=== PATIENT | female | born 1960 | race Caucasian/White ===

== ENCOUNTER 2020-01-29 16:04 | Emergency (ER) | payer MEDICARE ==
[~2020-01-29] VITALS: Ht 147.3 cm; Wt 72.6 kg
--- NOTE | 2020-01-29 16:51 | Emergency Department Note ---
History of Present Illnes History of Present Illness Chief Complaint: Abdominal Complaints History of Present Illness This is a 59 year old female Chief Complaint Comment PATIENT IN FROM HOME WITH COMPLAINTS OF ABDOMINAL PAIN X 3 DAYS; STATES THAT SHE "FEELS GASSY". PATIENT DENIES NAUSEA, VOMITING, DIARRHEA. PATIENT DENIES URINARY SYMPTOMS OR VAGINAL DISCHARGE. Historian: Patient Arrival Mode: Car Dry Cleaning Checker Required: No Onset (how long ago): day(s) (3) Location: umbillical Quality: discomfort, gassy Radiation: Reports non-radiation Severity: mild Onset quality: gradual Duration (how long): day(s) (3) Timing of current episode: sporadic Progression: waxing and waning Chronicity: new Context: Denies recent illness, Denies recent surgery Relieving factors: none Associated symptoms: Reports denies other symptoms Treatments prior to arrival: none Past Medical/Family History Physician Review I have reviewed the patient's past medical and family history. Any updates have been documented here. Past Medical History Recent Fever: No Clinical Suspicion of Infectio: No New/Unexplained Change in Ment: No Past Medical History: Hypertension Other Medical History: RHEUMATOID ARTHRITIS Past Surgical History: Social History Smoking Cessation: Never Smoker Counseling Performed: No Alcohol Use: None Any Illegal Drug Use: No Physically hurt or threatened: No Other Any Pre-Existing Lines (PICC,: No Review of Systems Review of Systems Constitutional: Reports no symptoms EENTM: Reports no symptoms Cardiovascular: Reports no symptoms Respiratory: Reports no symptoms Gastrointestinal: Reports as per HPI Genitourinary: Reports no symptoms Musculoskeletal: Reports no symptoms Integumentary: Reports no symptoms Neurological: Reports no symptoms Psychological: Reports no symptoms Endocrine: Reports no symptoms Hematological/Lymphatic: Reports no symptoms Physical Exam Related Data Allergies: Coded Allergies: hydrocodone (Verified Allergy, Mild, RASH, 01/29/20) Triage Vital Signs Vital Signs Date Time Temp Pulse Resp B/P (MAP) Pulse Ox O2 Delivery O2 Flow Rate FiO2 01/29/20 16:40 99.1 104 18 151/94 100 Room Air Vital signs reviewed: Yes Physical Exam CONSTITUTIONAL Constitutional: Present well-developed, Present well-nourished HENT HENT: Present normocephalic, Present atraumatic, Present oropharynx clear/moist, Present nose normal HENT L/R: Present left ext ear normal, Present right ext ear normal EYES Eyes: Reports PERRL, Reports conjunctivae normal NECK Neck: Present ROM normal PULMONARY Pulmonary: Present effort normal, Present breath sounds normal CARDIOVASCULAR Cardiovascular: Present regular rhythm, Present heart sounds normal, Present capillary refill normal, Present normal rate GASTROINTESTINAL Abdominal: Present soft, Present nontender, Present bowel sounds normal GENITOURINARY Genitourinary: Present exam deferred SKIN Skin: Present warm, Present dry MUSCULOSKELETAL Musculoskeletal: Present ROM normal NEUROLOGICAL Neurological: Present alert, Present oriented x 3, Present no gross motor or sensory deficits PSYCHOLOGICAL Psychological: Present mood/affect normal, Present judgement normal Assessment & Plan Medical Decision Making MDM 59 y.o F w/ no reported PMH presents for lower abdomial pain. No pain currently. Non tender abdomen. Offered to work up with labs/UA but patient prefers to f/u w/ her PCP and defers work up at this tie. VSS, WNL. No emergent process apparent at this time. Patient is appropriate for discharge. Reassessment Reassessment time: 16:50 Reassessment Well appearing, NAD Assessment & Plan Final Impression: (1) Abdominal discomfort Depart Disposition: HOME, SELF-CARE Last Vital Signs Date Time Temp Pulse Resp B/P (MAP) Pulse Ox O2 Delivery O2 Flow Rate FiO2 01/29/20 16:40 99.1 104 18 151/94 100 Room Air TRI MIRANDA MD Jan 29, 2020 16:51
--- OUTSIDE RECORDS SUMMARY | 2020-01-29 16:56 | XMS REPORT | Clinical Summary ---
Author Author [facility] ict Organization 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 Active traZODone (DESYREL) 50 mg Take 1 tablet 30 tablet 1 tabletIndications: by mouth at 8 Insomnia, unspecified bedtime nightly. Active ergocalciferol (VITAMIN Take 1 12 capsule 0 D2) 50,000 unit capsule by 8 capsuleIndications: mouth weekly. Vitamin D deficiency Active folic acid (FOLVITE) 1 mg Take 2 120 tablet 2 tabletIndications: tablets by 9 Methotrexate, alf, mouth daily. current use Active Meloxicam 7.5 mg Take 1 tablet 90 tablet 1 01 tabletIndications: by mouth 9 Rheumatoid arthritis, daily. involving unspecified site, unspecified rheumatoid factor presence Active omeprazole (PRILOSEC) 20 Take 1 90 capsule 1 0 mg delayed release capsule by 9 capsuleIndications: Long mouth daily. term systemic steroid user Active promethazine (PHENERGAN) Take 1 tablet 30 tablet 0 12.5 mg by mouth 9 tabletIndications: every 8 hours Generalized abdominal as needed for pain Nausea or Vomiting. Active Meloxicam (MOBIC) 15 mg Take 1 tablet 90 tablet 1 tabletIndications: by mouth 0 Rheumatoid arthritis daily. involving multiple sites with positive rheumatoid factor 03/06/2020 Active predniSONE (DELTASONE) 5 Take 3 160 tablet 1 0 mg tabletIndications: tablets by 0 Rheumatoid arthritis mouth daily involving multiple sites for 14 days, with positive rheumatoid THEN 2 factor tablets daily for 14 days, THEN 1 tablet daily for 90 days. 02/11/2020 Active adalimumab (HUMIRA PEN) Inject 0.8 mL 2 Each 6 40 mg/0.8 mL pen kit under the 0 injectionIndications: skin every 14 Rheumatoid arthritis days involving multiple sites with positive rheumatoid factor Active hydroCHLOROthiazide 12.5 Take 1 90 capsule 0 0 mg capsuleIndications: capsule by 0 Uncontrolled hypertension mouth every morning. 04/26/2019 Discontinued (Therapy comple cristi) mometasone (NASONEX) 50 USE 1 SPRAY 17 g 1 mcg/actuation nasal IN EACH 8 sprayIndications: NOSTIL ONCE A Allergic rhinitis, DAY unspecified seasonality, THERAPEUTIC unspecified trigger SUBSTITUTION FOR FLONASE PER P&T 02/07/2019 Discontinued (Reorder) adalimumab (HUMIRA PEN) Inject 0.8 mL 2 Each 5 40 mg/0.8 mL pen kit under the 9 injectionIndications: skin every 14 Rheumatoid arthritis days for 30 involving multiple sites days. with positive rheumatoid factor 04/13/2019 Discontinued (Reorder) hydroCHLOROthiazide 12.5 Take 1 90 capsule 0 0 mg capsuleIndications: capsule by 9 Uncontrolled hypertension mouth every morning. 02/09/2019 methotrexate (RHEUMATREX) Take 4 12 tablet 3 2.5 mg tabletIndications: tablets by 9 Methotrexate, alf, mouth weekly current use for 7 days. 06/12/2019 Discontinued (Reorder) predniSONE (DELTASONE) 5 Take 4 388 tablet 0 0 mg tabletIndications: tablets by 9 Rheumatoid arthritis, mouth daily involving unspecified for 14 days, site, unspecified THEN 3 rheumatoid factor tablets 2 presence times daily for 14 days, THEN 2 tablets 2 times daily for 62 days. 10/30/2019 Discontinued (Reorder) adalimumab (HUMIRA PEN) Inject 0.8 mL 2 Each 5 40 mg/0.8 mL pen kit under the 9 injectionIndications: skin every 14 Rheumatoid arthritis days for 30 involving multiple sites days. with positive rheumatoid factor 07/18/2019 Discontinued (Reorder) hydroCHLOROthiazide 12.5 Take 1 90 capsule 0 1 mg capsuleIndications: capsule by 9 Uncontrolled hypertension mouth every morning. 06/26/2019 mometasone (NASONEX) 50 1 [place] by 17 g 1 mcg/actuation nasal each nostril 9 sprayIndications: Viral route daily URI with cough for 14 days. 04/27/2019 Discontinued promethazine (PHENERGAN) Take 1 tablet 30 tablet 0 12.5 mg by mouth 9 tabletIndications: every 8 hours Generalized abdominal as needed for pain Nausea or Vomiting. 05/01/2019 Discontinued (Alternate ther apy) promethazine (PHENERGAN) Take 1 tablet 30 tablet 0 12.5 mg by mouth 9 tabletIndications: every 8 hours Generalized abdominal as needed for pain Nausea or Vomiting. 05/08/2019 promethazine (PHENERGAN) Take 1 tablet 30 tablet 0 25 mg tabletIndications: by mouth 9 Nausea without vomiting every 6 hours as needed for up to 7 days for Nausea or Vomiting. 11/04/2019 predniSONE (DELTASONE) 5 Take 4 388 tablet 0 0 mg tabletIndications: tablets by 0 Rheumatoid arthritis, mouth daily involving unspecified for 14 days, site, unspecified THEN 3 rheumatoid factor tablets 2 presence times daily for 14 days, THEN 2 tablets 2 times daily for 62 days. 10/30/2019 Discontinued (Reorder) hydroCHLOROthiazide 12.5 Take 1 90 capsule 0 0 mg capsuleIndications: capsule by 0 Uncontrolled hypertension mouth every morning. 01/28/2020 Discontinued (Reorder) hydroCHLOROthiazide 12.5 Take 1 90 capsule 0 0 mg capsuleIndications: capsule by 0 Uncontrolled hypertension mouth every morning. 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 12/04/2013 factor Overview: Diagnosed 09/2013 Chronic arthralgias of knees and hips H/O rheumatoid arthritis Chronic pain of both knees Bilateral knee effusions Swelling of wrist Encounters Care Team Description Date Type Specialty Shantanu Valiente MD Medications 01/28/2020 Refill Family Practice Isaura Fabian RN 01/17/2020 Nurse Triage Shantanu Valiente MD Medications 12/03/2019 Refill Family Practice Damian Delgado Fellow() Eriberto Dick MD Rheumatoid arthritis involving multiple sites with positive rheumatoid factor (Primary Dx); Osteoarthritis of both knees, unspecified osteoarthritis type; Encounter for long-term (current) use of high-risk medication 11/08/2019 Telephonic Rheumatology Encounter Eriberto Dick MD Medications 11/04/2019 Refill Family Practice Eriberto Dick MD Medications 10/30/2019 Refill Family Practice Daisy Almaguer, Fellow() Medications 10/30/2019 Refill Rheumatology Shantanu Valiente MD Medications 10/30/2019 Refill Family Practice Shantanu Valiente MD Medications 07/18/2019 Refill Family Practice Eriberto Dick MD Medications 06/12/2019 Refill Family Practice Eriberto Dick MD Medications 06/07/2019 Refill Family Practice Alejandro Bay MD Medications 05/24/2019 Refill Family Practice Alejandro Bay MD Medications 04/27/2019 Refill Family Practice Alejandro Bay MD Generalized abdominal pain (Primary Dx); Need for influenza vaccination; Viral URI with cough; Preventative health care 04/26/2019 Office Visit Family Practice Shantanu Valiente MD Medications 04/13/2019 Refill Family Practice Daisy Almaguer Fellow() Medications 02/07/2019 Refill Rheumatology after 01/28/2019 Immunizations Name Administration Dates Next Due Influenza, 04/26/2019 (Deferred: Patie nt Refused) Vaccine<FLUCELVAX>(Multi- Dose) Tdap (Tetanus Toxoid, 04/26/2019 (Deferred: Patie nt Refused), 09/19/2017 Reduced Diphtheria Toxoid (Deferred: Patient Refused ) And Acellular Pertussis, Absorbed) Family History Medical History Relation Name Comments Cancer Daughter Diabetes Maternal Aunt Diabetes Maternal Uncle Hypertension Mother Relation Name Status Comments Brother Alive Daughter Daughter Maternal Aunt Maternal Grandfather Maternal Grandmother Maternal Uncle Mother Son Alive Son Social History Date Tobacco Use Types Packs/Day Years Used Former Smoker Smokeless Tobacco: Never Used Tobacco Cessation: Counseling Given: Yes Drinks/Week oz/Week Comments Alcohol Use No Food Insecurity Answer Date Recorded Within the past 12 months, you worried that your Never mervat e 09/19/2017 food would run out before you got money to buy more. Within the past 12 months, the food you bought Never true 09/19/2017 just didn't last and you didn't have mo samuel to get more. Sex Assigned at Date Recorded Not on file Industry Job Start Date Occupation Not on file Not on file Not on file Travel End Travel History Travel Start No recent travel history available. Date Recorded COVID-19 Exposure Response 01/17/2020 9:06 AM CDT In the last month, have you been in contact with No / Unsure someone who was confirmed or suspected to have Coronavirus / COVID-19? 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 Blood Pressure 95 04/26/2019 1:23 PM [employer] Pulse 36.6 C (97.8 F) 04/26/2019 1:23 PM [employer] OF [employer] Temperature 20 04/26/2019 1:23 PM DIRECTOR OF [employer]ODUCT [employer]ING Respiratory Rate 97% 04/26/2019 1:23 PM [employer]OR OF [employer]ODUCT [employer]ING Oxygen Saturation - - Inhaled Oxygen Concentration 66.6 kg (146 lb 12.8 oz) 04/26/2019 1:23 PM [employer] Weight 147.3 cm (4' 10") 04/26/2019 1:23 PM [employer] OF [employer]ODUCT MARK[employer]ING Height 30.68 04/26/2019 1:23 PM [employer]OR OF [employer]ODUCT MARKETING Body Mass Index Plan of Treatment Health Maintenance Due Date Last Done Comments Cervical Cancer Scrn (3 09/13/1983 Yrs) Breast Cancer Scrn 2002 (Yearly) Colorectal Cancer Scrn 2012 Annual (FIT/FOBT) Age 50 to 75 Procedures Comments Procedure Name Priority Date/Time Associated Diag nosis HEMOCCULT KIT FOR Routine 04/26/2019 Preventative health care SPECIMEN COLLECTION AT 2:30 PM DIRECTOR OF [employer]ODUCT MARKETING HOME after 01/28/2019 Results Not on fileafter 01/28/2019 Additional Health Concerns Last Indicated Resolved Time Infection Onset Date 01/17/2020 Covid-19 01/10/2020 Insurance Type Payer Benefit Subscriber ID Effective Phone Address Plan / Dates Group MEDICARE MEDICARE xxxxxxxxxxx 2019-P [id number] [place] [address]
--- OUTSIDE RECORDS SUMMARY | 2020-01-29 16:57 | XMS REPORT | Continuity of Care Document ---
Author Author [facility] t Organization [facility] Address [address] [place] [address] Phone Unavailable Care Team Providers Care What Job Titles Mean Name Role Phone Rocco NOBLE, Shantanu PCP Rocco NOBLE, Shantanu Attphys Rui MUNGUIA, Linda Delarosa Attphys Unavailable Danny Fellow(), J Damian Attphys Kapil NOBLE, K Eriberto Attphys Rosina Fellow(), S Daisy Attphys [phone] Phu NOBLE, K Alejandro Attphys Payers Payer Name Policy Type Policy Number Effective Date Expiration Date avce MEDICAREMEDICARE PART A & Bxxxxxxxxxxx4/ [phone], [place] [address] xxxxxxxxxxx 2019 00:00:00 [facility] Problems Condition Name Condition Details Condition Category Status Onset Date Resolution Date Last Treatment Date Treating Clinician Comments Source Encounter for long-term (current) use of high-risk med ication Encounter for long-term (current) use of high-risk medication Disease Active 2017-11-10 00:00:00 [facility] Rheumatoid arthritis Rheumatoid arthritis Disease Active 00:00:00 [facility] Elevated total protein Elevated total protein Disease Active 2015-01-16 00:00:00 [facility] Anemia, unspecified Anemia, unspecified Disease Active 2015-01-16 00:00 :00 [facility] Rheumatoid arthritis involving multiple sites with pos itive rheumatoid factor Rheumatoid arthritis involving multiple sites with positive rheumatoid factor Disease Active 2013-12-04 00:00:00 Overview: Diagnosed 09/2013 [facility] Chronic arthralgias of knees and hips Chronic arthralgias of knees and hips Disease Active [facility] H/O rheumatoid arthritis H/O rheumatoid arthritis Disease Active [facility] Chronic pain of both knees Chronic pain of both knees Disease Active [facility] Bilateral knee effusions Bilateral knee effusions Disease Active [facility] Swelling of wrist Swelling of wrist Disease Active [facility] Allergies, Adverse Reactions, Alerts Allergy Name Allergy Type Status Severity Reaction(s) Onset Date Inacti ve Date Treating Clinician Comments Source Hydrocodone Propensity to adverse reactions to drug Active Rash 2017-09-19 00:00:00 [facility] aspirin DA Active [place] 2016-07-30 00:00:00 [facility] Family History Family Member Diagnosis Comments Start Date Stop Date Source Natural daughter Cancer [facility] Maternal aunt Diabetes [facility] th Maternal uncle Diabetes [facility] Natural mother Hypertension [facility] Social History Social Habit Start Date Stop Date Quantity Comments Source Sex Assigned At [facility] Exposure to SARS-CoV-2 (event) Not sure [facility] Alcohol intake 2019-04-26 00:00:00 2019-04-26 00:00:00 Current non-drinker of alcohol (finding) [facility] SDOH Food Worry 2017-09-19 00:00:00 2017-09-19 00:00:00 1 [facility] Food Scarcity 2017-09-19 00:00:00 2017-09-19 00:00:00 1 [facility] Smoking Status Start Date Stop Date Source Former smoker 2019-04-26 00:00:00 2019-04-26 00:00:00 [facility] Medications Ordered Medication Name Filled Medication Name Start Date Stop Da te Current Medication? Ordering Clinician Indication Dosage Frequency Signature (SIG) Comments Components Source hydroCHLOROthiazide 12.5 mg capsule 2020-01-29 00:00:00 Yes Uncontrolled hypertension 12.5mg Take 1 capsule by mouth every morning. [facility] Meloxicam (MOBIC) 15 mg tablet 2019-11-07 00:00:00 Yes Rheumatoid arthritis involving multiple sites with positive rheumatoid factor 15mg QD Take 1 tablet by mouth daily. [facility] predniSONE (DELTASONE) 5 mg tablet 2019-11-07 00:00:00 2020-03-06 23:59:00 Yes Rheumatoid arthritis involving multiple sites with positive rheumatoid factor Take 3 tablets by mouth albert y for 14 days, THEN 2 tablets daily for 14 days, THEN 1 tablet daily for 90 days. [facility] adalimumab (HUMIRA PEN) 40 mg/0.8 mL pen kit injection 2019-11-07 00:00:00 2020-02-11 23:59:00 Yes Rheumatoid arthritis involving multiple sites with positive rheumatoid factor 40mg Q14D Inject 0.8 mL under t he skin every 14 days [facility] adalimumab (HUMIRA PEN) 40 mg/0.8 mL pen kit injection 2019-11-01 00:00:00 2019-11-07 00:00:00 No Rheumatoid arthritis involving multiple sites with positive rheumatoid factor 40mg Q14D Inject 0.8 mL under t he skin every 14 days [facility] hydroCHLOROthiazide 12.5 mg capsule 2019-10-30 00:00:0 0 2020-01-28 00:00:00 No Uncontrolled hypertension 12.5mg Take 1 capsule by mout h every morning. [facility] hydroCHLOROthiazide 12.5 mg capsule 2019-07-20 00:00:0 0 2019-10-30 00:00:00 No Uncontrolled hypertension 12.5mg Take 1 capsule by mout h every morning. [facility] predniSONE (DELTASONE) 5 mg tablet 2019-06-21 00:00:00 23:59:00 No Rheumatoid arthritis, involving unspecif ied site, unspecified rheumatoid factor presence Take 4 tablets by mo uth daily for 14 days, THEN 3 tablets 2 times daily for 14 days, THEN 2 tablets 2 times daily for 62 days. [facility] promethazine (PHENERGAN) 12.5 mg tablet 2019-05-24 00:00:00 Yes Generalized abdominal pain 12.5mg Take 1 tablet by mouth every 8 hours as needed for Nausea or Vomiting. [facility] promethazine (PHENERGAN) 25 mg tablet 2019-05-01 00:00 :00 2019-05-08 23:59:00 No Nausea without vomiting 25mg Take 1 tablet by mouth every 6 hours as needed for up to 7 days for Nausea or Vomiting. [facility] promethazine (PHENERGAN) 12.5 mg tablet 00:00:00 2019-05-01 00:00:00 No Generalized abdominal pain 12.5mg Take 1 tablet by mouth every 8 hours as needed for Nausea or Vomiting. [facility] mometasone (NASONEX) 50 mcg/actuation nasal spray 2019-04-26 00:00:00 2019-06-26 23:59:00 No Viral URI with cough 1{spray} QD 1 [place] by each nostril route daily for 14 days. [facility] promethazine (PHENERGAN) 12.5 mg tablet 00:00:00 2019-04-27 00:00:00 No Generalized abdominal pain 12.5mg Take 1 tablet by mouth every 8 hours as needed for Nausea or Vomiting. [facility] hydroCHLOROthiazide 12.5 mg capsule 2019-04-19 00:00:0 0 2019-07-18 00:00:00 No Uncontrolled hypertension 12.5mg Take 1 capsule by mout h every morning. [facility] adalimumab (HUMIRA PEN) 40 mg/0.8 mL pen kit injection 2019-02-14 00:00:00 2019-10-30 00:00:00 No Rheumatoid arthritis involving multiple sites with positive rheumatoid factor 40mg Q14D Inject 0.8 mL under the skin every 14 days for 30 days. [facility] folic acid (FOLVITE) 1 mg tablet 2019-01-19 00:00:00 Yes Methotrexate, senior care, current use 2mg QD Take 2 tablets by mouth daily. [facility] Meloxicam 7.5 mg tablet 2019-01-19 00:00:00 Yes Rheumatoid arthritis, involving unspecified site, unspecified rheumatoid factor presence 7.5mg QD Take 1 tablet by mouth daily. [facility] omeprazole (PRILOSEC) 20 mg delayed release capsule 01-19 00:00:00 Yes custodial systemic steroid user 20mg QD Take 1 capsule by mouth daily. [facility] predniSONE (DELTASONE) 5 mg tablet 2019-01-19 00:00:00 00:00:00 No Rheumatoid arthritis, involving unspecif ied site, unspecified rheumatoid factor presence Take 4 tablets by mo uth daily for 14 days, THEN 3 tablets 2 times daily for 14 days, THEN 2 tablets 2 times daily for 62 days. [facility] methotrexate (RHEUMATREX) 2.5 mg tablet 00:00:00 2019-02-09 23:59:00 No Methotrexate, senior care, current use 10mg Take 4 tablets by mouth weekly for 7 days. [facility] hydroCHLOROthiazide 12.5 mg capsule 2018-12-24 00:00:0 0 2019-04-13 00:00:00 No Uncontrolled hypertension 12.5mg Take 1 capsule by mout h every morning. [facility] adalimumab (HUMIRA PEN) 40 mg/0.8 mL pen kit injection 2018-07-27 00:00:00 2019-02-07 00:00:00 No Rheumatoid arthritis involving multiple sites with positive rheumatoid factor 40mg Q14D Inject 0.8 mL under the skin every 14 days for 30 days. [facility] ergocalciferol (VITAMIN D2) 50,000 unit capsule 2018-02-02 0 0:00:00 Yes Vitamin D deficiency 18540B Take 1 capsule by mouth weekly. [facility] mometasone (NASONEX) 50 mcg/actuation nasal spray 2017-12-01 00:00:00 2019-04-26 00:00:00 No Allergic rhinitis, u nspecified seasonality, unspecified trigger USE 1 SPRAY IN EACH NOSTIL ONCE A DAY THERAPEUTIC SUBSTITUTION FOR FLONASE PER P&T [facility] traZODone (DESYREL) 50 mg tablet 2017-10-19 00:00:00 Yes Insomnia, unspecified 50mg Take 1 tablet by mouth at bedtime nightly. [facility] acetaminophen-codeine (TYLENOL/CODEINE #3) 300-30 mg per tab let 2017-09-19 00:00:00 Yes Chronic pain of both knees 1{tbl} Take 1 tablet by mouth every 12 hours as needed for Pain. [facility] Vital Signs Vital Name Observation Time Observation Value Comments Source Systolic blood pressure 2019-04-26 13:36:00 158 mm[Hg] manual [facility] Diastolic blood pressure 2019-04-26 13:36:00 84 mm[Hg] manual [facility] Heart rate 2019-04-26 13:23:00 95 /min [facility] Body temperature 2019-04-26 13:23:00 36.56 Caity Devyn is [facility] Respiratory rate 2019-04-26 13:23:00 20 /min [facility] Body height 2019-04-26 13:23:00 147.3 cm [facility] Body weight 2019-04-26 13:23:00 66.588 kg [facility] BMI 2019-04-26 13:23:00 30.68 kg/m2 [facility] Oxygen saturation in Arterial blood by Pulse oximetry 2018-06 13:23:00 97 /min [facility] Procedures Procedure Date / Time Performed Performing Clinician Sourjet e HEMOCCULT KIT FOR SPECIMEN COLLECTION AT HOME 2019-04-26 14: 30:54 Alejandro [place] [facility] Plan of Care Planned Activity Planned Date Details Comments Source [facility] Scheduled Test 2012 00:00:00 Screening for dimitri gnant neoplasm of colon (procedure) [code = 850659615] [facility] Scheduled Test 2002 00:00:00 Breast Cancer Scrn (Yearly) [code = Breast Cancer Scrn (Yearly)] [facility] Scheduled Test 1983-09-13 00:00:00 Screening for dimitri gnant neoplasm of cervix (procedure) [code = 619670218] [facility] Encounters Start Date/Time End Date/Time Encounter Type Admission Type [facility] Care Department Encounter ID Source 2019-07-05 00:00:00 2019-07-05 00:00:00 Outpatient [facility] [id number] [facility] 2019-06-28 00:00:00 2019-06-28 00:00:00 Outpatient [facility] [id number] [facility] 2019-06-12 00:00:00 2019-06-12 00:00:00 Outpatient [facility] [id number] [facility] 2019-04-26 13:22:54 2019-04-26 13:22:54 Outpatient [facility] [id number] [facility] 2019-04-26 00:00:00 2019-04-26 00:00:00 Outpatient [facility] [id number] [facility] 2019-02-19 00:00:00 2019-02-19 00:00:00 Outpatient [facility] [id number] [facility] 2019-01-22 00:00:00 2019-01-22 00:00:00 Outpatient [facility] [id number] [facility] 2019-01-19 09:38:39 2019-01-19 09:38:39 Outpatient [facility] [id number] [facility] 2019-01-19 07:54:54 2019-01-19 07:54:54 Outpatient [facility] [id number] [facility] 2019-01-19 00:00:00 2019-01-19 00:00:00 Outpatient [facility] [id number] [facility] 2018-10-20 00:00:00 2018-10-20 00:00:00 Outpatient [facility] [id number] [facility] 2018-07-27 09:18:28 2018-07-27 09:18:28 Outpatient [facility] [id number] [facility] 2018-07-27 08:08:24 2018-07-27 08:08:24 Outpatient [facility] [id number] [facility] 2018-07-06 09:59:59 2018-07-06 09:59:59 Emergency [facility] [id number] [facility] 2018-05-04 09:44:41 2018-05-04 09:44:41 Outpatient [facility] [id number] [facility] 2018-05-04 08:39:34 2018-05-04 08:39:34 Outpatient [facility] [id number] [facility] 2018-03-08 00:00:00 2018-03-08 00:00:00 Outpatient [facility] [id number] [facility] 2018-02-02 10:29:44 2018-02-02 10:29:44 Outpatient [facility] [id number] [facility] 2018-01-02 00:00:00 2018-01-02 00:00:00 Outpatient [facility] [id number] [facility] 2017-12-01 15:17:34 2017-12-01 15:17:34 Outpatient [facility] [id number] [facility] 2017-11-25 00:00:00 2017-11-25 00:00:00 Outpatient [facility] [id number] [facility] 2017-11-10 09:50:48 2017-11-10 09:50:48 Outpatient [facility] [id number] [facility] 2017-11-10 09:17:36 2017-11-10 09:17:36 Outpatient [facility] [id number] [facility] 2017-11-10 08:08:13 2017-11-10 08:08:13 Outpatient [facility] [id number] [facility] 2017-09-27 00:00:00 2017-09-27 00:00:00 Outpatient [facility] [id number] [facility] 2017-09-25 12:26:27 2017-09-25 12:26:27 Emergency [facility] [id number] [facility] 2017-09-25 10:32:20 2017-09-25 10:32:20 Emergency [facility] [id number] [facility] 2017-09-25 00:00:00 2017-09-25 00:00:00 Emergency [facility] [id number] [facility] 2017-09-19 14:05:42 2017-09-19 14:05:42 Outpatient [facility] [id number] [facility] 2017-09-09 00:00:00 2017-09-09 00:00:00 Outpatient [facility] [id number] [facility] 2017-04-22 09:53:34 2017-04-22 09:53:34 Outpatient [facility] [id number] [facility] 2017-02-28 13:07:34 2017-02-28 13:07:34 Outpatient [facility] [id number] [facility] 2017-02-28 12:56:56 2017-02-28 12:56:56 Outpatient [facility] [id number] [facility] 2017-02-15 00:00:00 2017-02-15 00:00:00 Outpatient [facility] [id number] [facility] 2017-01-24 00:00:00 2017-01-24 00:00:00 Outpatient [facility] [id number] [facility] 2016-12-03 14:43:29 2016-12-03 14:43:29 Outpatient [facility] [id number] [facility] 2016-11-26 00:00:00 2016-11-26 00:00:00 Outpatient [facility] [id number] [facility] Results Test Description Test Time Test Comments Results Result Comments Source BASIC METABOLIC PANEL 2018-10-11 07:49:00 Test Item SODIUM (test code = NA) 137 mmol/L 135-148 N POTASSIUM (test code = K) 3.3 mmol/L 3.5-5.1 L CHLORIDE (test code = CL) 100 mmol/L 101-109 L CARBON DIOXIDE (test code = CO2) 26.2 mmol/L 21-32 N ANION GAP (test code = GAP) 14 mmol/L 10-20 N GLUCOSE (test code = GLU) 110 mg/dL 74-106 H BLOOD UREA NITROGEN (test code = BUN) 6 mg/dL 3-21 N GLOMERULAR FILTRATION RATE (test code = GFR) > 60 mL/min >=60 Estimated GFR by using Modified MDRD formula.Chronic kidney disease is defined as either kidney damageor GFR <60 mL/min/1.73 m2 for >3 months. CREATININE (test code = CREAT) 0.64 mg/dL 0.55-1.3 N BUN/CREATININE RATIO (test code = BUN/CREA) 9.4 10-20 L CALCIUM (test code = CA) 9.8 mg/dL 8.4-10.2 N HEPATIC FUNCTION [id number] 07:49:00* Test Item Value Reference Range Interpretation Comments TOTAL PROTEIN (test code = PROT) 8.1 g/dL 6.5-8.4 N ALBUMIN (test code = ALB) 3.7 g/dL 3.4-4.8 N GLOBULIN (test code = GLOB) 4.4 G/DL 1-10 N ALBUMIN/GLOBULIN RATIO (test code = A/G) 0.8 RATIO 0.75-1.50 N BILIRUBIN TOTAL (test code = BILT) 0.50 mg/dL 0.0-1.0 N BILIRUBIN DIRECT (test code = BILD) 0.10 mg/dL 0.0-0.30 N SGOT/AST (test code = AST) 22 U/L 6-32 N SGPT/ALT (test code = ALT) 28 U/L 12-78 N N ote: Change in REFERENCE RANGE due to new reagent method. ALKALINE PHOSPHATASE TOTAL (test code = ALKP) 134 U/L 38-126 H [id number] 07:49:00* Test Item Value Reference Range Interpretation Comments LIPASE (test code = LIP) 93 U/L 128-270 L URINALYSIS [id number] 07:48:00* Test Item Value Reference Range Interpretation Comments UA COLOR (test code = COLU) YELLOW YELLOW UA APPEARANCE (test code = APPU) CLEAR CLEAR UA GLUCOSE DIPSTICK (test code = DGLUU) norm mg/dL NEGATIVE UA BILIRUBIN DIPSTICK (test code = BILU) NEGATIVE mg/dL NEGATIVE UA KETONE DIPSTICK (test code = KETU) neg mg/dL NEGATIVE UA SPECIFIC GRAVITY (test code = SGU) 1.010 1.001-1.035 UA BLOOD DIPSTICK (test code = BERNIE) neg Gray/uL NEGATIVE UA PH DIPSTICK (test code = MAK) 7.0 5.0-8.0 UA PROTEIN DIPSTICK (test code = PROU) neg mg/dL Neg-15 UA UROBILINIOGEN DIPSTICK (test code = URO) norm mg/dL 0.0-0.2 UA NITRITE DIPSTICK (test code = NATASHA) NEGATIVE NEGATIVE UA LEUKOCYTE ESTERASE DIPSTICK (test code = LEUU) neg uL NEGA TIVE UA WBC (test code = WBCU) 0-5 per HPF 0-5 UA RBC (test code = RBCU) NONE SEEN per HPF 0-5 UA EPITHELIAL CELLS (test code = EPIU) MODERATE per HPF Few UA BACTERIA (test code = BACU) FEW per HPF NONE Urine Source? Clean CatchCBC W/O [id number] 07:28:00* Test Item Value Reference Range Interpretation Comments WHITE BLOOD CELL (test code = WBC) 10.1 K/mm3 4.5-12.5 N RED BLOOD CELL (test code = RBC) 4.72 mill/mm3 3.7-5.2 N HEMOGLOBIN (test code = HGB) 14.1 gram/dL 11.5-15.5 N HEMATOCRIT (test code = HCT) 43.7 % 36.0-46.0 N MEAN CELL VOLUME (test code = MCV) 92.6 fL 80-98 N MEAN CELL HGB (test code = MCH) 29.9 picogram 27.0-33.0 N MEAN CELL HGB CONCETRATION (test code = MCHC) 32.3 gram/dL 33.0-36. 0 L RED CELL DISTRIBUTION WIDTH (test code = RDW) 12.8 % 11.6-16. 2 N RED CELL DISTRIBUTION WIDTH SD (test code = RDW-SD) 44.1 fL 37 .0-51.0 N PLATELET COUNT (test code = PLT) 328 K/mm3 150-450 N MEAN PLATELET VOLUME (test code = MPV) 9.8 fL 6.7-11.0 N URINALYSIS [id number] 07:28:00* Test Item Value Reference Range Interpretation Comments UA COLOR (test code = COLU) YELLOW YELLOW UA APPEARANCE (test code = APPU) CLEAR CLEAR UA GLUCOSE DIPSTICK (test code = DGLUU) norm mg/dL NEGATIVE UA BILIRUBIN DIPSTICK (test code = BILU) NEGATIVE mg/dL NEGATIVE UA KETONE DIPSTICK (test code = KETU) neg mg/dL NEGATIVE UA SPECIFIC GRAVITY (test code = SGU) 1.010 1.001-1.035 UA BLOOD DIPSTICK (test code = BERNIE) neg Gray/uL NEGATIVE UA PH DIPSTICK (test code = MAK) 7.0 5.0-8.0 UA PROTEIN DIPSTICK (test code = PROU) neg mg/dL Neg-15 UA UROBILINIOGEN DIPSTICK (test code = URO) norm mg/dL 0.0-0.2 UA NITRITE DIPSTICK (test code = NATASHA) NEGATIVE NEGATIVE UA LEUKOCYTE ESTERASE DIPSTICK (test code = LEUU) neg uL NEGA TIVE UA WBC (test code = WBCU) per HPF 0-5 UA RBC (test code = RBCU) per HPF 0-5 UA EPITHELIAL CELLS (test code = EPIU) per HPF Few UA BACTERIA (test code = BACU) per HPF NONE Urine Source? Clean Catch
== END 2020-01-29 16:53 | disposition home or self-care (01) ==
LOC: ER 16:53
DX: R10.33 Periumbilical pain (principal); R14.1 Gas pain; I10 Essential (primary) hypertension; M06.9 Rheumatoid arthritis, unspecified
CPT/HCPCS: 99282